=== PATIENT | female | born 1985 | race African-American/Black ===

== ENCOUNTER 2020-06-28 16:12 | Emergency (ER) | payer MEDICAID ==
[2020-06-28] MEDS ORDERED: HYDROmorphone 1 MG/ML Syringe IM ONE (16:27)
[2020-06-28 16:42] VITALS: BP 130/75; PULSE 104
--- NOTE | 2020-06-28 16:45 | EDM.PDOC ---
ED HPI GENERAL MEDICAL PROBLEM - General Chief Complaint: Lower Extremity Injury/Pain Stated Complaint: H[place] [employer] Time Seen by Provider: 06/28/20 16:44 Source of Information: Reports: Patient History Limitations: Reports: No Limitations - History of Present Illness INITIAL COMMENTS - FREE TEXT/NARRATIVE: pt slipped on the ice and has severe pain in the left ankle. Onset: Today, Sudden Duration: Hour(s): Location: Reports: Lower Extremity, Left Associated Symptoms: Reports: No Other Symptoms - Related Data Allergies Allergy/AdvReac Type Severity Reaction Status Date / Time No Known Allergies Allergy Verified 06/25/15 22:02 Home Meds: Home Meds NK [No Known Home Meds] 08/02/15 [History] Past Medical History - Past Health History Medical/Surgical History: Denies Medical/Surgical History IN[employer] History: Reports: Other [employer] History: C Section x4 - Infectious Disease History Infectious Disease History: Reports: Chicken Pox - Past Surgical History Other GI Surgeries/Procedures: Hernia repair Jan [address] PEARL Female Surgical History: Reports: Section, Tubal Ligation Other Female Surgeries/Procedures: none Social & Family History - Tobacco Use Tobacco Use Status *Q: Never Tobacco User Review of Systems - Review of Systems Review Of Systems: See Below Constitutional: Reports: No Symptoms Eyes: Reports: No Symptoms Ears: Reports: No Symptoms Nose: Reports: No Symptoms Mouth/Throat: Reports: No Symptoms Respiratory: Reports: No Symptoms Cardiovascular: Reports: No Symptoms GI/Abdominal: Reports: No Symptoms Genitourinary: Reports: No Symptoms Musculoskeletal: Reports: Other ( slipped on the ice and now has left ankle pain. ) Skin: Reports: No Symptoms ED EXAM, GENERAL - Physical Exam Exam: See Below Free Text/Narrative:: pt arrived with pain on the lateral aspect of the left ankle. Exam Limited By: No Limitations General Appearance: Alert, Anxious Ears: Normal TMs Nose: Normal Inspection Throat/Mouth: Normal Inspection Head: Atraumatic Neck: Normal Inspection Respiratory/Chest: No Respiratory Distress Cardiovascular: Regular Rate, Rhythm GI/Abdominal: Soft, Non-Tender (Female) Exam: Deferred Rectal (Female) Exam: Deferred Back Exam: Normal Inspection Extremities: Other (pt has a painful left ankle. ) Neurological: Alert, Oriented, Normal Cognition Course - Vital Signs Last Recorded V/S: Last Vital Signs Temp 37.1 C 06/28/20 16:24 Pulse 104 H 06/28/20 16:24 Resp 20 06/28/20 16:24 BP 130/75 06/28/20 16:24 Pulse Ox 96 06/28/20 16:24 - Orders/Labs/Meds Meds: Medications Discontinued Medications Generic Name Dose Route Start Last Admin Trade Name Freq PRN Reason Stop Dose Admin Hydromorphone HCl 1 mg 06/28/20 16:27 06/28/20 16:33 Dilaudid IM 06/28/20 16:28 1 mg ONETIME ONE Administration Departure - Departure Time of Disposition: 17:17 Disposition: Home, Self-Care 01 Condition: Fair Clinical Impression: Ankle sprain - Discharge Information Referrals: PCP,None [Primary Care Provider] - Forms: ED Department Discharge Care Plan Goals: no work for the next 3-4 days, appt with regular physian if persistent pain, stirrup asplint wrap with a rosendo, crutches. motrin 600mh q6h prn for pain, when pain gets better may start weight bearing. norco 5/325 q6h prn for severe pain #4 Sepsis Event Note (ED) - Evaluation Sepsis Screening Result: No Definite Risk - Focused Exam Vital Signs: Vital Signs Temp Pulse Resp BP Pulse Ox 06/28/20 16:24 37.1 C 104 H 20 130/75 96
--- NOTE | 2020-06-28 17:10 | CRLCR ---
Indication: Severe left ankle pain after fall Comparison: None available. Technique: AP, Lateral, and Oblique views left ankle were obtained Findings: There is no displaced fracture or dislocation. The ankle mortise is symmetrical. The talar dome is smooth and intact. The joint spaces are otherwise grossly preserved. There is mild malleolar soft tissue swelling. Impression: Mild malleolar soft tissue swelling without evidence of displaced fracture. Dictated by Akil Stovall MD @ Jun 28 2020 5:06PM Signed by Dr. Akil Stovall @ Jun 28 2020 5:08PM
== END 2020-06-28 17:42 | disposition home or self-care (01) ==
LOC: JP.ED 16:12
DX: S93.402A Sprain of unspecified ligament of left ankle, initial encounter (principal); W00.0XXA Fall on same level due to ice and snow, initial encounter
CPT/HCPCS: 29515; 73610-LT; 96372; 99283; 99283-25; J1170